=== PATIENT | male | born 1980 | race African-American/Black ===

== ENCOUNTER 2017-11-20 11:16 | Emergency (ER) | payer MEDICAID ==
[~2017-11-20] VITALS: Ht 175.3 cm; Wt 125.0 kg
[2017-11-20 11:25] VITALS: BP 138/83
[2017-11-20] MEDS ORDERED: KETOROLAC 30 MG/1 ML ONE (11:56)
[2017-11-20] MEDS ORDERED: DIAZEPAM 5 MG TABLET ONE (11:57)
[2017-11-20] MEDS ORDERED: KETOROLAC 30 MG/1 ML IM ONE (12:00)
[2017-11-20] MEDS ORDERED: DIAZEPAM 5 MG TABLET PO ONE (12:00)
[2017-11-20] MEDS ORDERED: HYDROcodone/APAP 5/325 TABLET ONE (12:23)
[2017-11-20] MEDS ORDERED: HYDROcodone/APAP 5/325 TABLET PO ONE (12:30)
== END 2017-11-20 12:39 | disposition home or self-care (01) ==
LOC: ED 12:03
DX: S39.012A Strain of muscle, fascia and tendon of lower back, initial encounter (principal); F17.200 Nicotine dependence, unspecified, uncomplicated; V49.50XA Passenger injured in collision with unspecified motor vehicles in traffic accident, initial encounter; Y93.89 Activity, other specified; Y99.8 Other external cause status; Y92.89 Other specified places as the place of occurrence of the external cause
CPT/HCPCS: 72110; 99284

== ENCOUNTER 2019-01-06 12:57 | Emergency (ER) | payer MEDICAID, OTHER ==
[~2019-01-06] VITALS: Ht 175.3 cm; Wt 124.0 kg
[2019-01-06 14:08] VITALS: BP 159/80
== END 2019-01-06 17:35 | disposition home or self-care (01) ==
LOC: ED 17:05
DX: J02.8 Acute pharyngitis due to other specified organisms (principal); N50.9 Disorder of male genital organs, unspecified; B97.89 Other viral agents as the cause of diseases classified elsewhere; F17.200 Nicotine dependence, unspecified, uncomplicated
CPT/HCPCS: 81001; 87086; 99283